=== PATIENT | female | born 1945 | race Caucasian/White ===

== ENCOUNTER → 2020-01-05 | Outpatient (CLI) | payer MEDICARE, OTHER | END | disposition home or self-care (01) | LOC: CFH 12:54 | PROVIDERS: ATTEND Surgery | DX: N63.23 Unspecified lump in the left breast, lower outer quadrant (principal); K43.5 Parastomal hernia without obstruction or gangrene; I70.0 Atherosclerosis of aorta | CPT/HCPCS: 74176; 76642; 77066; G0279 ==

== ENCOUNTER 2020-01-08 11:35 | Outpatient (CLI) | payer MEDICARE, OTHER ==
[2020-01-08] MEDS ORDERED: LIDOCAINE 1%-EPI 1:100K, 20ML ONE (12:00)
[2020-01-08] MEDS ORDERED: SODIUM BICARBONATE 4.2%, 5ML ONE (12:00)
[2020-01-08] MEDS ORDERED: LIDOCAINE 1%, 20ML ONE (12:00)
[2020-01-26] MEDS ORDERED: METF500T17 PO (11:10)
[2020-01-26] MEDS ORDERED: HYDR25TA6 PO (11:10)
[2020-01-26] MEDS ORDERED: GLIP5TAB10 PO (11:10)
[2020-01-26] MEDS ORDERED: ASPI81TA45 PO (11:34)
== END 2020-01-08 23:59 | disposition home or self-care (01) ==
LOC: CFH 11:35
PROVIDERS: ATTEND Surgery
DX: N63.23 Unspecified lump in the left breast, lower outer quadrant (principal); D05.12 Intraductal carcinoma in situ of left breast
CPT/HCPCS: 19083; 19084; 38505; 76942; 77065; 88305; 88341; 88342; J3490

== ENCOUNTER → 2020-01-22 | Outpatient (CLI) | payer MEDICARE, OTHER ==
[~2020-01-22] MED LIST: ASPI81TA45 PO; GLIP5TAB10 PO; HYDR25TA6 PO; LIDOCAINE 1%, 20ML ONE; LIDOCAINE 1%-EPI 1:100K, 20ML ONE; METF500T17 PO; SODIUM BICARBONATE 4.2%, 5ML ONE
== END | disposition home or self-care (01) ==
LOC: CFH 07:01
PROVIDERS: ATTEND Surgery
DX: D05.12 Intraductal carcinoma in situ of left breast (principal); M19.90 Unspecified osteoarthritis, unspecified site; E66.9 Obesity, unspecified; Z68.42 Body mass index [BMI] 45.0-49.9, adult; Z79.84 Long term (current) use of oral hypoglycemic drugs; Z87.891 Personal history of nicotine dependence; Z88.5 Allergy status to narcotic agent; Z88.8 Allergy status to other drugs, medicaments and biological substances; Z98.890 Other specified postprocedural states; Z82.49 Family history of ischemic heart disease and other diseases of the circulatory system; Z83.3 Family history of diabetes mellitus; Z80.9 Family history of malignant neoplasm, unspecified
CPT/HCPCS: 19285; 19286; 77065; J3490

== ENCOUNTER 2020-01-29 10:29 | Day surgery (SDC) | payer MEDICARE, OTHER ==
[2020-01-26 12:49] LABS: ALANINE AMINOTRANSFERASE 32 U/L (12-78); ANION GAP 6 mmol/L (5-15); CALCIUM 9.1 mg/dL (8.5-10.1); CHLORIDE 106 mmol/L (98-107); CREATININE 1.17 mg/dL (0.55-1.02)
[2020-01-26 12:52] LABS: ALKALINE PHOSPHATASE 108 U/L (45-117); BILIRUBIN,TOTAL 0.7 mg/dL (0.2-1.0); TOTAL PROTEIN 7.2 g/dL (6.4-8.2)
[~2020-01-29] VITALS: Ht 162.6 cm; Wt 126.7 kg
[~2020-01-29 10:29] MED LIST changes: -LIDOCAINE 1%, 20ML ONE; -LIDOCAINE 1%-EPI 1:100K, 20ML ONE; -SODIUM BICARBONATE 4.2%, 5ML ONE
[2020-01-29 11:07] VITALS: BP 114/74
[2020-01-29] MEDS ORDERED: CHLORHEXIDINE 15 ML UDC MM ONE (11:30)
[2020-01-29] MEDS ORDERED: LACTATED RINGERS 1,000 ML IV SCH (11:30)
[2020-01-29] MEDS ORDERED: BUPIVACAINE/PF 0.5% ONE (12:53)
[2020-01-29] MEDS ORDERED: EPINEPHRINE 1 MG/ML, 1ML ONE (12:53)
[2020-01-29] MEDS ORDERED: MIDAZOLAM 1 MG/ML, 2ML ONE (12:59)
[2020-01-29] MEDS ORDERED: PHENYLEPHRINE 10 MG/ML ONE (13:08)
[2020-01-29] MEDS ORDERED: ISOSULFAN BLUE 10 MG/ML, 5ML IV ONE (13:14)
[2020-01-29] MEDS ORDERED: PROMETHAZINE 12.5 MG SUPP PR PRN (14:00)
[2020-01-29] MEDS ORDERED: MEPERIDINE/PF 25MG/0.5ML IVPush PRN (14:00)
[2020-01-29] MEDS ORDERED: DIAZEPAM 5 MG/ML, 2ML IVPush PRN (14:00)
[2020-01-29] MEDS ORDERED: OXYcodone 5 MG/5 ML ORAL.SOL UDC PO PRN (14:00)
[2020-01-29] MEDS ORDERED: FENTANYL PF 100 MCG/2ML IV PRN (14:00)
[2020-01-29] MEDS ORDERED: MIDAZOLAM 1 MG/ML, 2ML IV PRN (14:00)
[2020-01-29] MEDS ORDERED: PROMETHAZINE 25 MG/ML, 1ML IVPush PRN (14:00)
[2020-01-29] MEDS ORDERED: EPHEDRINE 50 MG/ML, 1ML IVPush PRN (14:00)
[2020-01-29] MEDS ORDERED: hydrALAzine 20 MG/ML, 1ML IV PRN (14:00)
[2020-01-29] MEDS ORDERED: ONDANSETRON 2MG/ML, 2ML IVPush PRN ×2 (14:00→15:00)
[2020-01-29] MEDS ORDERED: DIPHENHYDRAMINE 50 MG/ML, 1ML IVPush PRN (14:00)
[2020-01-29] MEDS ORDERED: ACETAMINOPHEN 325 MG TABLET PO PRN (14:00)
[2020-01-29] MEDS ORDERED: LABETALOL 5MG/ML, 20ML IV PRN (14:00)
[2020-01-29] MEDS ORDERED: HYDROmorphone 1 MG/ML, 1ML INJ IVPush PRN (14:00)
[2020-01-29] MEDS ORDERED: ALBUTEROL SULFATE 2.5 MG/3 ML NPPB PRN (14:00)
[2020-01-29] MEDS ORDERED: PROPOFOL 10 MG/ML, 20ML ONE (14:21)
[2020-01-29] MEDS ORDERED: FENTANYL PF 250 MCG/5ML ONE (14:21)
[2020-01-29] MEDS ORDERED: ONDANSETRON 2MG/ML, 2ML ONE (14:22)
[2020-01-29] MEDS ORDERED: DEXAMETHASONE 4 MG/ML, 1ML ONE (14:22)
[2020-01-29] MEDS ORDERED: ROCURONIUM 10MG/ML,5ML ONE (14:22)
[2020-01-29] MEDS ORDERED: SUCCINYLCHOLINE 20 MG/ML, 10ML ONE (14:22)
[2020-01-29] MEDS ORDERED: PROMETHAZINE 25 MG/ML, 1ML ONE (14:49)
[2020-01-29] MEDS ORDERED: HYDROcodone/APAP 5/325 TABLET PO PRN (15:00)
[2020-01-29] MEDS ORDERED: HYDROmorphone 2 MG/ML, 1ML IVPush PRN (15:00)
[2020-01-29] MEDS ORDERED: FENTANYL PF 100 MCG/2ML ONE (15:13)
[2020-01-29] MEDS ORDERED: HYDROcodone/APAP 7.5-325MG/15ML UDC ONE (15:14)
[2020-01-29] MEDS ORDERED: HYDROcodone/APAP 7.5-325MG/15ML UDC PO ONE (15:30)
== END 2020-01-29 16:40 | disposition home or self-care (01) ==
LOC: OUT 10:29
PROVIDERS: ATTEND Surgery
DX: D05.82 Other specified type of carcinoma in situ of left breast (principal); E11.9 Type 2 diabetes mellitus without complications; I10 Essential (primary) hypertension; I25.10 Atherosclerotic heart disease of native coronary artery without angina pectoris; I25.2 Old myocardial infarction; E66.01 Morbid (severe) obesity due to excess calories; Z68.42 Body mass index [BMI] 45.0-49.9, adult; Z20.828 Contact with and (suspected) exposure to other viral communicable diseases; Z79.899 Other long term (current) drug therapy; Z88.8 Allergy status to other drugs, medicaments and biological substances; Z87.891 Personal history of nicotine dependence; Z83.3 Family history of diabetes mellitus; Z82.5 Family history of asthma and other chronic lower respiratory diseases; Z82.49 Family history of ischemic heart disease and other diseases of the circulatory system
CPT/HCPCS: 19301; 36415; 80053; 82962; 87635; 88305; 88307; 93005; C1729; J0171; J0330; J1100; J2250; J2370; J2405; J2550; J2704; J3010; J7120

== ENCOUNTER 2020-02-12 07:48 | Day surgery (SDC) | payer MEDICARE, OTHER ==
[~2020-02-12] VITALS: Ht 160 cm; Wt 126.1 kg
[2020-02-12] MEDS ORDERED: ALBUTEROL SULFATE 200 PUFFS/8.5 GR INH ONE (08:07)
[2020-02-12] MEDS ORDERED: LIDOCAINE-MPF 1%, 5ML ONE (08:27)
[2020-02-12] MEDS ORDERED: CHLORHEXIDINE 15 ML UDC MM ONE (09:30)
[2020-02-12] MEDS ORDERED: FENTANYL PF 100 MCG/2ML ONE ×3 (09:30→11:40)
[2020-02-12 09:34] VITALS: BP 116/82
[2020-02-12] MEDS ORDERED: ISOSULFAN BLUE 10 MG/ML, 5ML IV ONE (09:47)
[2020-02-12] MEDS ORDERED: BUPIVACAINE/PF 0.5% ONE (09:47)
[2020-02-12] MEDS ORDERED: LIDOCAINE/PF 1%, 30ML ONE (09:48)
[2020-02-12] MEDS ORDERED: EPINEPHRINE 1 MG/ML, 1ML ONE (09:48)
[2020-02-12] MEDS ORDERED: SODIUM BICARBONATE 4.2%, 5ML ONE (09:48)
[2020-02-12] MEDS ORDERED: LACTATED RINGERS 1,000 ML IV SCH (10:00)
[2020-02-12] MEDS ORDERED: DIPHENHYDRAMINE 50 MG/ML, 1ML IVPush PRN (10:00)
[2020-02-12] MEDS ORDERED: hydrALAzine 20 MG/ML, 1ML IV PRN (10:00)
[2020-02-12] MEDS ORDERED: HYDROmorphone 1 MG/ML, 1ML INJ IVPush PRN (10:00)
[2020-02-12] MEDS ORDERED: HYDROcodone/APAP 7.5-325MG/15ML UDC PO PRN (10:00)
[2020-02-12] MEDS ORDERED: PROMETHAZINE 25 MG/ML, 1ML IVPush PRN (10:00)
[2020-02-12] MEDS ORDERED: FENTANYL PF 100 MCG/2ML IV PRN (10:00)
[2020-02-12] MEDS ORDERED: HALOPERIDOL 5 MG/ML IV PRN (10:00)
[2020-02-12] MEDS ORDERED: LABETALOL 5MG/ML, 20ML IV PRN (10:00)
[2020-02-12] MEDS ORDERED: NEOSTIGMINE 1 MG/ML, 10ML ONE (10:48)
[2020-02-12] MEDS ORDERED: CEFAZOLIN 1,000 MG ONE ×4 (10:48→10:49)
[2020-02-12] MEDS ORDERED: PROPOFOL 10 MG/ML, 20ML ONE (10:48)
[2020-02-12] MEDS ORDERED: ONDANSETRON 2MG/ML, 2ML ONE (10:48)
[2020-02-12] MEDS ORDERED: GLYCOPYRROLATE 0.2MG/1ML, 5ML ONE (10:48)
[2020-02-12] MEDS ORDERED: SUCCINYLCHOLINE 20 MG/ML, 10ML ONE (10:48)
[2020-02-12] MEDS ORDERED: DEXAMETHASONE 4 MG/ML, 1ML ONE (10:48)
[2020-02-12] MEDS ORDERED: ROCURONIUM 10MG/ML,5ML ONE (10:48)
[2020-02-12] MEDS ORDERED: ONDANSETRON 2MG/ML, 2ML IVPush PRN (11:30)
[2020-02-12] MEDS ORDERED: HYDROcodone/APAP 5/325 TABLET PO PRN (11:30)
[2020-02-12] MEDS ORDERED: morphine SULFATE 10 MG/ML, 1ML IVPush PRN (11:30)
[2020-02-12] MEDS ORDERED: MEPERIDINE/PF 25MG/ML,1ML ONE (11:40)
[2020-02-12] MEDS ORDERED: OXYcodone 5 MG/5 ML ORAL.SOL UDC ONE (11:40)
[2020-02-12] MEDS ORDERED: PROMETHAZINE 25 MG/ML, 1ML ONE (11:56)
== END 2020-02-12 13:45 | disposition home or self-care (01) ==
LOC: OUT 07:48
PROVIDERS: ATTEND Surgery
DX: C50.512 Malignant neoplasm of lower-outer quadrant of left female breast (principal); Z20.828 Contact with and (suspected) exposure to other viral communicable diseases; I10 Essential (primary) hypertension; E11.9 Type 2 diabetes mellitus without complications; J44.9 Chronic obstructive pulmonary disease, unspecified; E66.01 Morbid (severe) obesity due to excess calories; Z17.0 Estrogen receptor positive status [ER+]; Z68.42 Body mass index [BMI] 45.0-49.9, adult; Z79.84 Long term (current) use of oral hypoglycemic drugs; Z79.899 Other long term (current) drug therapy; Z87.891 Personal history of nicotine dependence; Z88.5 Allergy status to narcotic agent; Z88.8 Allergy status to other drugs, medicaments and biological substances; Z90.12 Acquired absence of left breast and nipple; Z98.890 Other specified postprocedural states; Z82.49 Family history of ischemic heart disease and other diseases of the circulatory system; Z80.9 Family history of malignant neoplasm, unspecified
CPT/HCPCS: 36415; 38525; 38792; 82962; 87635; 88307; 88333; 88342; A9541; J0171; J0330; J0690; J1100; J2405; J2550; J2704; J3010; J2710

== ENCOUNTER → 2020-02-20 | Outpatient (CLI) | payer MEDICARE, OTHER | END | disposition home or self-care (01) | LOC: ROC 07:33 | PROVIDERS: ATTEND Radiology Radiation Oncology | DX: C50.812 Malignant neoplasm of overlapping sites of left female breast (principal); E11.9 Type 2 diabetes mellitus without complications; I10 Essential (primary) hypertension; J44.9 Chronic obstructive pulmonary disease, unspecified; E66.01 Morbid (severe) obesity due to excess calories; Z68.42 Body mass index [BMI] 45.0-49.9, adult; Z87.891 Personal history of nicotine dependence; Z79.84 Long term (current) use of oral hypoglycemic drugs; Z90.12 Acquired absence of left breast and nipple; Z17.0 Estrogen receptor positive status [ER+] | CPT/HCPCS: G0463 ==